=== PATIENT | female | born 1985 | race American Indian/Alaskan Native ===

== ENCOUNTER 2021-08-07 05:41 | Emergency (ER) | payer OTHER ==
[2021-08-07] MEDS ORDERED: SODIUM CHLORIDE 0.9% 1000 ML 1,000 ML IV ONE (05:54)
--- NOTE | 2021-08-07 06:19 | Emergency Department Report ---
ED Dizziness HPI - General Chief Complaint: Weakness Stated Complaint: DIZZINESS/WEAKNESS Time Seen by Provider: 08/07/21 05:54 Source: EMS Mode of arrival: Stretcher Limitations: No Limitations - History of Present Illness Initial Comments: Patient presented secondary to dizziness. She states she got up this morning and felt very dizzy. She was actually unable to get out of bed due to the dizziness and generalized weakness. She felt as though the room was spinning on her. That has persisted. This is worse when she turns her head to the right. The spinning sensation is less intense now than it was earlier. She does report nausea associated with this. There was a recent URI. She had no head trauma. The URI consisted of runny nose and cough with some congestion. Patient states that she has no chest pain or back pain. There is no headache. She denies diplopia. Patient has no numbness or tingling in the arms or legs. She has no saddle anesthesia. She states that she just felt dizzy and generally weak. She is never had symptoms like this before. Again, this was abrupt onset this morning. - Related Data Previous Rx's Medication Instructions Recorded Last Taken Type Meclizine [Antivert] 25 mg PO TID PRN #30 tablet 08/07/21 Unknown Rx Ondansetron [Zofran ODT TAB] 8 mg PO Q8HR PRN #20 tab.rapdis 08/07/21 Unknown Rx Allergies Allergy/AdvReac Type Severity Reaction Status Date / Time No Known Allergies Allergy Verified 08/07/21 06:37 ED Review of Systems ROS: Stated complaint: DIZZINESS/WEAKNESS Other details as noted in HPI Comment: All other systems reviewed and negative Constitutional: denies: fever Eyes: denies: eye pain ENT: denies: throat pain Respiratory: cough (Resolved) Cardiovascular: denies: chest pain Endocrine: denies: unexplained weight loss Gastrointestinal: denies: abdominal pain Genitourinary: denies: dysuria Musculoskeletal: denies: back pain Skin: denies: rash Neurological: denies: headache Hematological/Lymphatic: denies: easy bruising ED Past Medical Hx - Past Medical History Previous Medical History?: No - Family History Family history: no significant - Medications Home Medications: Home Medications Medication Instructions Recorded Confirmed Last Taken Type Meclizine [Antivert] 25 mg PO TID PRN #30 tablet 08/07/21 Unknown Rx Ondansetron [Zofran ODT TAB] 8 mg PO Q8HR PRN #20 tab.rapdis 08/07/21 Unknown Rx ED Physical Exam - General Limitations: No Limitations, Other (Pulse ox noted and normal) General appearance: alert, in no apparent distress, obese - Head Head exam: Present: atraumatic, normocephalic, normal inspection - Eye Eye exam: Present: normal appearance, PERRL, EOMI. Absent: scleral icterus - ENT ENT exam: Present: normal exam, normal orophraynx - Neck Neck exam: Present: normal inspection. Absent: meningismus - Respiratory Respiratory exam: Present: normal lung sounds bilaterally. Absent: respiratory distress - Cardiovascular Cardiovascular Exam: Present: regular rate, normal rhythm - GI/Abdominal GI/Abdominal exam: Present: soft. Absent: tenderness - Extremities Exam Extremities exam: Present: normal capillary refill - Back Exam Back exam: Absent: CVA tenderness (R), CVA tenderness (L) - Neurological Exam Neurological exam: Present: alert, oriented X3, CN II-XII intact, normal gait, reflexes normal, other (No pronator drift or dysdiadochokinesia). Absent: motor sensory deficit - Psychiatric Psychiatric exam: Present: normal affect, normal mood - Skin Skin exam: Present: warm, dry ED Course Vital Signs 08/07/21 08/07/21 05:34 06:57 Temperature 98.0 F Pulse Rate 79 72 Respiratory 22 16 Rate Blood Pressure 114/75 107/75 [Right] O2 Sat by Pulse 99 99 Oximetry - Reevaluation(s) Reevaluation #1: 08/07/21 06:19 IV and labs were ordered. Old records reviewed. Reevaluation #2: 08/07/21 07:44 Labs are noted and the patient was discharged ED Medical Decision Making - Lab Data Result diagrams: 08/07/21 06:00 08/07/21 06:00 - Medical Decision Making Patient presented with a prodromal symptom followed by vertigo. At this point, I do believe this is a viral etiology for the vestibular neuronitis. She does not have hearing loss suggestive of labyrinthitis. She does not appear to be septic or toxic. This was abrupt onset consistent with a peripheral vertigo. It was not insidious onset. I do not believe this represents a central cause of vertigo. She has no neurologic deficits suggestive of acute cerebellar stroke. Patient has no trauma that would suggest subdural or epidural hematomas. There is no evidence of meningismus on exam. She was treated symptomatically and referred for outpatient evaluation and follow-up. Critical Care Time: No Critical care attestation.: If time is entered above; I have spent that time in minutes in the direct care of this critically ill patient, excluding procedure time. ED Disposition Clinical Impression: Vertigo Disposition: HOME / SELF CARE / HOMELESS Is pt being admited?: No Condition: Stable Instructions: How to Perform the Tomas Maneuver, Dizziness Additional Instructions: Drink plenty water at home. Return for problems. Follow-up with your regular doctor for recheck and further management. Prescriptions: Meclizine [Antivert] 25 mg PO TID PRN #30 tablet PRN Reason: Vertigo Ondansetron [Zofran ODT TAB] 8 mg PO Q8HR PRN #20 tab.rapdis PRN Reason: Nausea Referrals: PRIMARY MD ANTONIETTA [Primary Care Provider] - 3-5 Days EMIL STOVER MD [Staff Physician] - 3-5 Days
[2021-08-07 06:33] LABS: Hematocrit 33.9 % (30.3-42.9); Hemoglobin 10.6 gm/dl (10.1-14.3); Mean Corpuscular HGB Conc 31 % (30-34); Mean Corpuscular Volume 78 fl (79-97); Platelet Count 320 K/mm3 (140-440); Red Blood Count 4.33 M/mm3 (3.65-5.03)
[2021-08-07 06:35] LABS: Red Cell Distribution Width 25.2 % (13.2-15.2)
[2021-08-07 06:41] LABS: Blood Urea Nitrogen 13 mg/dL (7-17); Calcium 8.9 mg/dL (8.4-10.2); Hemolysis Index 12
[2021-08-07 06:46] LABS: BUN/Creatinine Ratio 22
[2021-08-07] MEDS ORDERED: MECLIZINE 25 MG TAB PO ONE (07:19)
[2021-08-07 07:50] VITALS: BP 110/64
== END 2021-08-07 08:35 | disposition home or self-care (01) ==
LOC: ED 05:41
DX: R42 Dizziness and giddiness (principal); R53.1 Weakness
CPT/HCPCS: 36415; 80048; 84703; 85027; 96360; 99284; J7030; Q0162

== ENCOUNTER 2022-04-25 09:59 | Emergency (ER) | payer OTHER | END 2022-04-25 21:35 | disposition left against medical advice (07) | LOC: ED 09:59 | DX: R53.83 Other fatigue (principal); Z53.21 Procedure and treatment not carried out due to patient leaving prior to being seen by health care provider ==

== ENCOUNTER 2022-04-30 14:24 | Emergency (ER) | payer OTHER ==
--- NOTE | 2022-04-30 14:38 | Emergency Department Report ---
Blank Doc - Documentation Documentation: 36-year-old female that presents with chest pain and shortness of breath. 1- This is a initial triage assessment/medical screening only. Full assessment and work-up will be completed once the patient is in proper hospital gown, ED bed and in a private room setting. This initial assessment/diagnostic orders/clinical plan/ treatment(s) is/are subject to change based on pt's health status, clinical progression and re-assessment by fellow clinical providers in the ED. Further treatment and workup at subsequent clinical providers discretion. Patient/guardians urged not to elope from ED as their condition may be serious if not clinically assessed and managed. 2-cardiac workup The patient was evaluated in the emergency department for symptoms described in the history of present illness. He/she was evaluated in the context of the global COVID-19 pandemic, which necessitated consideration that the patient might be at risk for infection with the virus that causes COVID-19. Institutional protocols and algorithms that pertain to the evaluation of patients at risk for COVID-19 are in a state of rapid change based on information released by regulatory bodies including the CDC and federal and state organizations. These policies and algorithms were followed during the patient's care in the emergency department. Please note that these policies, procedures and recommendations changed on a rapid basis.
[2022-04-30 14:39] VITALS: BP 161/88
[2022-04-30 15:15] LABS: Basophils % (Auto) 0.8 % (0.0-1.8); Eosinophils # (Auto) 0.1 K/mm3 (0.0-0.4); Eosinophils % (Auto) 2.3 % (0.0-4.3); Hematocrit 34.7 % (30.3-42.9); Hemoglobin 10.9 gm/dl (10.1-14.3); Lymphocytes # (Auto) 2.3 K/mm3 (1.2-5.4); Lymphocytes % (Auto) 35.7 % (13.4-35.0); Mean Corpuscular HGB Conc 32 % (30-34); Mean Corpuscular Volume 82 fl (79-97); Monocytes # (Auto) 0.5 K/mm3 (0.0-0.8); Monocytes % (Auto) 7.3 % (0.0-7.3); Platelet Count 302 K/mm3 (140-440); Red Blood Count 4.26 M/mm3 (3.65-5.03)
[2022-04-30 15:23] LABS: INR 0.94 (0.87-1.13); Partial Thromboplastin Time 26.9 Sec. (24.2-36.6)
[2022-04-30 16:06] LABS: Alanine Aminotransferase 10 units/L (7-56); Albumin 4.1 g/dL (3.9-5); BUN/Creatinine Ratio 15; Blood Urea Nitrogen 12 mg/dL (7-17); Hemolysis Index 10
--- NOTE | 2022-04-30 16:58 | XRay Report ---
CHEST 2 VIEWS INDICATION: Chest Pain. COMPARISON: None FINDINGS: SUPPORT DEVICES: None. HEART: Within normal limits. LUNGS/PLEURA: No acute air space or interstitial disease. No pneumothorax. ADDITIONAL FINDINGS: None. IMPRESSION: 1. No acute findings. Signer Name: Martell Song MD Signed: 04/30/2022 4:54 PM Workstation Name: [email or web address]
--- NOTE | 2022-05-01 08:38 | Electrocardiograph Report ---
[facility] Test Date: 2022-04-30 Test Time: 14:38:25 Pat Name: HAYLEE COLBERT Department: Room: Gender: F Order Department Supervisor: DONAVAN : 1985 Requested By: RENZO PETTY Order Number: [id number] Reading MD: Ant Ashby Measurements Intervals [place] Rate: 94 P: 54 WV: 127 QRS: 7 QRSD: 80 T: 22 QT: 346 QTc: 433 Interpretive Statements Sinus rhythm nonspecific st-t No previous ECG available for comparison Electronically Signed On 05-01-2022 8:38:04 EDT by Ant Ashby
== END 2022-05-01 17:18 | disposition left against medical advice (07) ==
LOC: ED 14:24
DX: R07.9 Chest pain, unspecified (principal); R06.02 Shortness of breath; Z53.21 Procedure and treatment not carried out due to patient leaving prior to being seen by health care provider
CPT/HCPCS: 36415; 71046; 80053; 84484; 84703; 85025; 85610; 85730; 93005